=== PATIENT | male | born 2005 | race Caucasian/White ===

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

== ENCOUNTER 2023-02-20 15:38 | Outpatient (CLI) | payer OTHER | END 2023-02-20 15:39 | disposition home or self-care (01) | LOC: CSHRAD 15:38 | PROVIDERS: ATTEND Neurological Surgery | DX: S12.9XXA Fracture of neck, unspecified, initial encounter (principal) | CPT/HCPCS: 72050 ==